=== PATIENT | female | born 1990 | race Caucasian/White ===

== ENCOUNTER 2016-10-03 23:23 | Emergency (ER) | payer OTHER ==
[2016-10-04 00:47] LABS: BASOPHIL 0.3 % (0-2); EOSINOPHIL 2.5 % (0-5); HCT 33.4 % (37.0-47.0); HGB 11.5 g/dl (12.5-16.0); LYMPHOCYTE 32.6 % (15-48); MCH 30.8 pg (25.0-31.0); MCHC 34.4 g/dL (32.0-36.0); MCV 89.5 fL (78.0-100.0); MONOCYTE 10.2 % (0-12); MPV 9.8 fL (6.0-9.5); NEUTROPHIL 54.4 % (41-80); PLT 217 K/uL (150-400); RBC 3.73 M/uL (4.20-5.40); RDW 13.5 % (11.5-14.0); WBC 9.1 K/uL (4.0-10.5)
[2016-10-04 01:02] LABS: CREATININE 0.7 mg/dL (0.5-1.0)
== END 2016-10-04 03:00 | disposition home or self-care (01) ==
LOC: FER 23:23
PROVIDERS: Emergency Medicine Emergency Medical Services
DX: N93.8 Other specified abnormal uterine and vaginal bleeding (principal); E86.9 Volume depletion, unspecified; Z87.42 Personal history of other diseases of the female genital tract
CPT/HCPCS: 36415; 80048; 84703; 85025; 86850; 86900; 86901; J1170; J2405

== ENCOUNTER 2021-09-29 03:48 | Emergency (ER) | payer OTHER ==
[2021-09-29 04:23] LABS: BASOPHIL 0.6 % (0-2); EOSINOPHIL 1.8 % (0-5); HCT 44.4 % (37.0-47.0); LYMPHOCYTE 26.4 % (15-48); MCH 30.1 pg (25.0-31.0); MCHC 33.8 g/dL (32.0-36.0); MCV 89.2 fL (78.0-100.0); MONOCYTE 8.2 % (0-12); MPV 9.6 fL (6.0-9.5); NEUTROPHIL 62.5 % (41-80); NRBC 0; PLT 263 K/uL (150-400); RBC 4.98 M/uL (4.20-5.40); RDW 12.8 % (11.5-14.0); WBC 9.4 K/uL (4.0-10.5)
[2021-09-29 04:23] LABS: BILIRUBIN NEGATIVE (NEGATIVE); BLOOD 1+ Ery/uL (NEGATIVE); CLARITY CLEAR (CLEAR); COLOR YELLOW (YELLOW); GLUCOSE (U) NORMAL (NORMAL); LEUKOCYTES NEGATIVE Leu/uL (NEGATIVE); NITRITE NEGATIVE (NEGATIVE); PROTEIN NEGATIVE (NEGATIVE); SPECIFIC GRAVITY >=1.030 (1.001-1.030); UROBILINOGEN 0.2 mg/dL (0.2-1.0)
[2021-09-29 04:35] LABS: BACTERIA 1+
[2021-09-29 04:49] LABS: ALBUMIN 3.9 g/dL (3.4-5.0); BILIRUBIN - TOTAL 0.3 mg/dL (0.2-1.0); BUN/CREAT RATIO (CALC) 19.8 RATIO; CREATININE 1.16 mg/dL (0.51-0.95); GLOBULIN (CALCULATION) 3.6 g/dL; TOTAL PROTEIN 7.5 g/dL (6.4-8.2)
[2021-09-29] MEDS ORDERED: FLOMAX0.4 MG PO (05:27)
[2021-09-29] MEDS ORDERED: VICODIN 10/3251 EACH PO (05:27)
[2021-09-29] MEDS ORDERED: ONDANSETRON ODT4 MG PO (05:59)
[2021-09-29] MEDS ORDERED: PHENERGAN25 M1 PO (05:59)
[2021-09-29] MEDS ORDERED: VIBRAMYCIN100 MG PO (06:23)
== END 2021-09-29 06:50 | disposition home or self-care (01) ==
LOC: FER 03:48
PROVIDERS: Internal Medicine
DX: N13.2 Hydronephrosis with renal and ureteral calculous obstruction (principal); N17.9 Acute kidney failure, unspecified; J18.9 Pneumonia, unspecified organism
CPT/HCPCS: 36415; 80053; 81001; 83690; 85025; J1170; J1885; J2405; J2550